=== PATIENT | female | born 1965 | race Two or more races ===

== ENCOUNTER → 2017-08-01 | Emergency (ER) | payer OTHER ==
[~2017-08-01] VITALS: Ht 162.6 cm; Wt 74.8 kg
[~2017-08-01] MED LIST: ORPH100T PO; PEPCID AC20 MG PO; PERCOCET 5-3251 EACH PO; ZITHROMAX TRI-500 MG PO
== END | disposition home or self-care (01) ==
LOC: ER 16:00
DX: N39.0 Urinary tract infection, site not specified (principal); M54.5 Low back pain

== ENCOUNTER 2017-08-03 06:49 | Emergency (ER) | payer OTHER ==
[~2017-08-03] VITALS: Ht 162.6 cm; Wt 74.8 kg
[~2017-08-03 06:49] MED LIST changes: -PERCOCET 5-3251 EACH PO
[2017-08-03] MEDS ORDERED: PERCOCET 5-3251 EACH PO (12:50)
== END 2017-08-03 12:55 | disposition home or self-care (01) ==
LOC: ER 06:49
DX: R30.0 Dysuria (principal); R10.31 Right lower quadrant pain

== ENCOUNTER → 2017-08-25 | Emergency (ER) | payer OTHER ==
[~2017-08-25] VITALS: Ht 162.6 cm; Wt 77.1 kg
[~2017-08-25] MED LIST changes: +PERCOCET 5-3251 EACH PO
== END | disposition home or self-care (01) ==
LOC: ER 07:12
DX: S80.01XA Contusion of right knee, initial encounter (principal); W18.39XA Other fall on same level, initial encounter; Y93.89 Activity, other specified; Y92.098 Other place in other non-institutional residence as the place of occurrence of the external cause; Y99.8 Other external cause status

== ENCOUNTER 2018-02-19 08:41 | Emergency (ER) | payer OTHER ==
[~2018-02-19] VITALS: Ht 162.6 cm; Wt 81.6 kg
== END 2018-02-19 11:54 | disposition home or self-care (01) ==
LOC: ER 08:41
DX: R21 Rash and other nonspecific skin eruption (principal); T78.49XA Other allergy, initial encounter

== ENCOUNTER 2018-11-19 09:20 | Emergency (ER) | payer OTHER ==
[~2018-11-19] VITALS: Ht 162.6 cm; Wt 81.6 kg
== END 2018-11-19 13:48 | disposition home or self-care (01) ==
LOC: ER 09:20
DX: R53.1 Weakness (principal); I10 Essential (primary) hypertension; F06.4 Anxiety disorder due to known physiological condition

== ENCOUNTER 2018-11-29 14:33 | Emergency (ER) | payer OTHER ==
[~2018-11-29] VITALS: Ht 162.6 cm; Wt 77.1 kg
== END 2018-11-29 19:31 | disposition home or self-care (01) ==
LOC: ER 14:33
DX: K59.09 Other constipation (principal)

== ENCOUNTER → 2019-02-07 07:40 | Outpatient (CLI) | payer OTHER | END | disposition home or self-care (01) | LOC: SONOGRAMA 07:40 | DX: E03.8 Other specified hypothyroidism (principal) ==

== ENCOUNTER 2020-04-25 08:48 | Outpatient (CLI) | payer OTHER | END 2020-04-25 08:57 | disposition home or self-care (01) | LOC: RAD 08:48 | PROVIDERS: ATTEND Internal Medicine Cardiovascular Disease | DX: R10.84 Generalized abdominal pain (principal) ==

== ENCOUNTER → 2020-04-26 | Outpatient (CLI) | payer OTHER | END | disposition home or self-care (01) | LOC: MRI 09:10 | PROVIDERS: ATTEND Internal Medicine Cardiovascular Disease | DX: K80.20 Calculus of gallbladder without cholecystitis without obstruction (principal) | CPT/HCPCS: 74181 ==

== ENCOUNTER 2020-06-05 09:34 | Emergency (ER) | payer OTHER ==
[~2020-06-05] VITALS: Ht 162.6 cm; Wt 75.7 kg
[2020-06-05] MEDS ORDERED: INTESTINEX680 M2 PO (15:00)
[2020-06-05] MEDS ORDERED: CIPRO500 MG PO (15:00)
[2020-06-05] MEDS ORDERED: PEPCID AC20 MG PO (15:00)
== END 2020-06-05 15:12 | disposition home or self-care (01) ==
LOC: ER 09:34
DX: R19.7 Diarrhea, unspecified (principal); R10.13 Epigastric pain; Z03.818 Encounter for observation for suspected exposure to other biological agents ruled out

== ENCOUNTER 2020-07-23 08:14 | Emergency (ER) | payer OTHER ==
[~2020-07-23] VITALS: Ht 162.6 cm; Wt 70.3 kg
[~2020-07-23 08:14] MED LIST changes: +CIPRO500 MG PO; +INTESTINEX680 M2 PO
== END 2020-07-23 15:35 | disposition home or self-care (01) ==
LOC: ER 08:14
DX: R10.13 Epigastric pain (principal)

== ENCOUNTER 2020-09-24 08:39 | Emergency (ER) | payer OTHER ==
[~2020-09-24] VITALS: Ht 162.6 cm; Wt 73.9 kg
[2020-09-24] MEDS ORDERED: NORFLEX100MG PO (15:39)
== END 2020-09-24 15:50 | disposition home or self-care (01) ==
LOC: ER 08:39
DX: M54.2 Cervicalgia (principal); R07.89 Other chest pain; R42 Dizziness and giddiness; Z03.818 Encounter for observation for suspected exposure to other biological agents ruled out

== ENCOUNTER 2021-03-15 07:29 | Emergency (ER) | payer OTHER ==
[~2021-03-15] VITALS: Ht 162.6 cm; Wt 80.7 kg
[~2021-03-15 07:29] MED LIST changes: +NORFLEX100MG PO
[2021-03-15] MEDS ORDERED: NORFLEX100MG PO (12:22)
== END 2021-03-15 12:40 | disposition home or self-care (01) ==
LOC: ER 07:29
DX: M25.551 Pain in right hip (principal); M54.5 Low back pain; Z03.818 Encounter for observation for suspected exposure to other biological agents ruled out

== ENCOUNTER 2021-10-04 07:04 | Outpatient (CLI) | payer OTHER | END 2021-10-04 07:33 | disposition home or self-care (01) | LOC: LAB 07:04 | PROVIDERS: ATTEND Internal Medicine Gastroenterology | DX: R19.7 Diarrhea, unspecified (principal) ==

== ENCOUNTER 2021-10-04 08:09 | Outpatient (CLI) | payer OTHER | END 2021-10-04 13:24 | disposition home or self-care (01) | LOC: SONOGRAMA 08:09 | PROVIDERS: ATTEND Internal Medicine Gastroenterology | DX: R10.84 Generalized abdominal pain (principal) ==

== ENCOUNTER 2022-06-16 09:43 | Emergency (ER) | payer OTHER ==
[~2022-06-16] VITALS: Ht 162.6 cm; Wt 72.6 kg
== END 2022-06-16 13:43 | disposition home or self-care (01) ==
LOC: ER 09:43
DX: N20.0 Calculus of kidney (principal)

== ENCOUNTER 2023-03-27 08:19 | Outpatient (CLI) | payer OTHER | END 2023-03-27 08:20 | disposition home or self-care (01) | LOC: LAB 08:19 | PROVIDERS: ATTEND Internal Medicine Cardiovascular Disease | DX: I10 Essential (primary) hypertension (principal); E11.9 Type 2 diabetes mellitus without complications; E03.9 Hypothyroidism, unspecified; E78.2 Mixed hyperlipidemia; E55.9 Vitamin D deficiency, unspecified; M19.90 Unspecified osteoarthritis, unspecified site ==

== ENCOUNTER → 2023-03-30 | Outpatient (CLI) | payer OTHER | END | disposition home or self-care (01) | LOC: TOM 07:25 | PROVIDERS: ATTEND Otolaryngology | DX: M54.2 Cervicalgia (principal); K11.23 Chronic sialoadenitis ==

== ENCOUNTER → 2023-04-01 10:35 | Outpatient (CLI) | payer OTHER | END | disposition home or self-care (01) | LOC: SONOGRAMA 10:35 | PROVIDERS: ATTEND Internal Medicine Cardiovascular Disease | DX: E04.2 Nontoxic multinodular goiter (principal) ==

== ENCOUNTER 2023-05-04 07:45 | Outpatient (CLI) | payer OTHER | END 2023-05-04 07:49 | disposition home or self-care (01) | LOC: SONOGRAMA 07:45 | PROVIDERS: ATTEND Pathology Anatomic Pathology & Clinical Pathology | DX: D34 Benign neoplasm of thyroid gland (principal); E04.9 Nontoxic goiter, unspecified; E07.9 Disorder of thyroid, unspecified; E04.1 Nontoxic single thyroid nodule ==

== ENCOUNTER 2024-03-01 07:29 | Outpatient (CLI) | payer OTHER | END 2024-03-01 07:40 | disposition home or self-care (01) | LOC: RAD 07:29 | PROVIDERS: ATTEND Internal Medicine Cardiovascular Disease | DX: R10.9 Unspecified abdominal pain (principal); R31.9 Hematuria, unspecified; E03.9 Hypothyroidism, unspecified; E04.1 Nontoxic single thyroid nodule ==

== ENCOUNTER 2024-03-10 08:15 | Outpatient (CLI) | payer OTHER | END 2024-03-10 08:23 | disposition home or self-care (01) | LOC: SONOGRAMA 08:15 | PROVIDERS: ATTEND Pathology Anatomic Pathology & Clinical Pathology | DX: D34 Benign neoplasm of thyroid gland (principal); E07.89 Other specified disorders of thyroid; E04.1 Nontoxic single thyroid nodule ==

== ENCOUNTER 2024-09-29 12:41 | Outpatient (CLI) | payer OTHER | END 2024-09-29 12:49 | disposition home or self-care (01) | LOC: SONOGRAMA 12:41 | PROVIDERS: ATTEND Internal Medicine Gastroenterology | DX: R10.11 Right upper quadrant pain (principal) ==

== ENCOUNTER 2024-10-14 07:11 | Outpatient (CLI) | payer OTHER | END 2024-10-14 07:16 | disposition home or self-care (01) | LOC: TOM 07:11 | PROVIDERS: ATTEND Internal Medicine Gastroenterology | DX: R10.11 Right upper quadrant pain (principal) ==

== ENCOUNTER 2025-02-21 08:32 | Outpatient (CLI) | payer OTHER | END 2025-02-21 08:42 | disposition home or self-care (01) | LOC: SONOGRAMA 08:32 | PROVIDERS: ATTEND Internal Medicine | DX: E04.2 Nontoxic multinodular goiter (principal) ==

== ENCOUNTER 2025-03-08 06:06 | Day surgery (SDC) | payer OTHER ==
[2025-03-02 08:05] VITALS: BP 128/85
[2025-03-02 08:50] LABS: URINE APPEARANCE Clear; URINE BILIRRUBIN Negative (NEGATIVE); URINE BLOOD Small; URINE COLOR Yellow; URINE GLUCOSE Negative (NEGATIVE); URINE KETONE Negative (NEGATIVE); URINE LEUKOCYTE Small; URINE NITRATE Negative; URINE PROTEIN Negative (NEGATIVE); URINE UROBILINOGEN 0.2 E.U./dl
[2025-03-02 08:54] LABS: URINE BACTERIA 4216.7 uL (0.0-1933); URINE EPITHELIAL CELLS 67.5 uL (0.0-38.8); URINE RBC 14.6 uL (0.0-20.8); URINE WBC 57.0 uL (0.0-23.2)
[2025-03-02 09:02] LABS: URINE CAST 0.14 uL (0.0-1.40)
[2025-03-02 09:05] LABS: BASO % 0.5 % (0.1-1.2); EOS # 0.43 (0.04-0.54); EOS % 3.8 % (0.7-7.0); LYMPH # 3.56 (1.18-3.74); LYMPH % 31.3 % (19.3-53.1); MEAN PLATELET VOLUME 10.80 fl (9.4-12.4); MONO # 0.70 (0.24-0.82); MONO % 6.2 % (4.7-12.5); NEUT # 6.56 (1.56-6.13); NEUT % 57.6 % (34.0-71.1); RED CELL DISTRIBUTION WIDTH 14.5 % (11.6-14.4)
[2025-03-02 09:33] LABS: INR 0.99
[2025-03-02 10:01] LABS: ALT/SGPT 23.0 U/L (12-78); AST/SGOT 17.0 U/L (15-37); BILIRUBIN TOTAL 0.53 mg/dL (0.3-1.2); BUN CREA RATIO 18.0 (7.0-25.0); CREATININE SERUM 0.68 mg/dL (0.55-1.02); GFR 88.56; GLOBULINA 3.2 G/DL (2.4-3.5); GLUCOSE FASTING 120.0 mg/dL (65-100); OSMOLALITY SERUM 288.0 MOSM/KG (275-295)
[~2025-03-08] VITALS: Ht 162.6 cm; Wt 83.0 kg
[~2025-03-08 06:06] MED LIST changes: +BENZONATATE 200 MG; +ROSUVASTATIN CA10 MG; +VALSARTAN80 MG PO
[2025-03-08] MEDS ORDERED: CEFAZOLIN SODIUM 1,000 MG VIAL IV SCH (10:15)
[2025-03-08] MEDS ORDERED: SUGAMMADEX SODIUM 200 MG/2 ML VIAL IV ONE (10:30)
[2025-03-08] MEDS ORDERED: MORPHINE SULFATE 4 MG/ML VIAL IV ONE (11:05)
[2025-03-08] MEDS ORDERED: TETANUS & DIPHTHERIA TOX,ADULT 0.5 ML VIAL IM ONE (14:00)
== END 2025-03-08 15:00 | disposition home or self-care (01) ==
LOC: CIR.AMB 06:06
PROVIDERS: ATTEND Surgery
DX: K42.9 Umbilical hernia without obstruction or gangrene (principal); Z88.6 Allergy status to analgesic agent
CPT/HCPCS: 49593; C1781

== ENCOUNTER 2025-03-08 06:35 | Emergency (ER) | payer OTHER ==
[~2025-03-08] VITALS: Ht 162.6 cm; Wt 83.0 kg
== END 2025-03-08 09:32 | disposition left against medical advice (07) ==
LOC: ER 06:35
DX: Z53.21 Procedure and treatment not carried out due to patient leaving prior to being seen by health care provider (principal)

== ENCOUNTER 2025-03-18 09:26 | Emergency (ER) | payer OTHER ==
[~2025-03-18] VITALS: Ht 162.6 cm; Wt 81.6 kg
[2025-03-18] MEDS ORDERED: ACETAMINOPHEN 500 MG GEL..CAP PO ONE (10:30)
== END 2025-03-18 13:02 | disposition home or self-care (01) ==
LOC: ER 09:26
DX: M25.572 Pain in left ankle and joints of left foot (principal); Z88.6 Allergy status to analgesic agent; E78.00 Pure hypercholesterolemia, unspecified; I10 Essential (primary) hypertension

== ENCOUNTER 2025-04-01 07:26 | Emergency (ER) | payer OTHER ==
[~2025-04-01] VITALS: Ht 162.6 cm; Wt 83.0 kg
[2025-04-01] MEDS ORDERED: MESALAMINE800 MG (07:29)
[2025-04-01] MEDS ORDERED: DEXAMETHASONE SODIUM PHOSPHATE 4 MG/ML VIAL IM ONE (10:00)
== END 2025-04-01 10:05 | disposition home or self-care (01) ==
LOC: ER 07:26
DX: S90.512A Abrasion, left ankle, initial encounter (principal); W19.XXXA Unspecified fall, initial encounter; Y93.89 Activity, other specified; Y92.89 Other specified places as the place of occurrence of the external cause; Y99.9 Unspecified external cause status; I10 Essential (primary) hypertension; Z88.6 Allergy status to analgesic agent